=== PATIENT | male | born 1950 | race Caucasian/White ===

== ENCOUNTER 2019-01-09 07:11 | Day surgery (SDC) | payer BC, MEDICARE ==
[2019-01-05 15:42] VITALS: BP 163/79
[2019-01-05 15:55] LABS: BASOPHILS % (AUTO) 1.2 % (0.0-5.0); EOSINOPHILS % (AUTO) 3.4 % (0.0-8.0); HEMATOCRIT 47.5 % (42-54); LYMPHOCYTES % (AUTO) 17.8 % (21.0-51.0); MEAN CORPUSCULAR HEMOGLOBIN 29.3 pg (27.0-33.0); MEAN CORPUSCULAR HGB CONC 33.9 g/dL (32.0-36.0); MEAN CORPUSCULAR VOLUME 86.5 fL (79-99); MONOCYTES % (AUTO) 10.7 % (3.0-13.0); NEUTROPHILS % (AUTO) 66.9 % (40.0-77.0); PLATELET COUNT (AUTO) 319 K/uL (130-400); RED BLOOD CELL COUNT(AUTO) 5.49 MIL/uL (4.50-6.20); RED CELL DISTRIBUTION WIDTH 14.8 % (11.0-15.5); WHITE BLOOD COUNT (AUTO) 11.1 K/uL (4.8-10.8)
[2019-01-05 16:06] LABS: POTASSIUM 4.1 mmol/L (3.5-5.1)
--- NOTE | 2019-01-08 11:44 | NUR ---
[facility] INFORMED AND FAXED ABNORMAL WBC TO DR. DANIELLE SMALLS. SHE WILL INFORM DR. SANTOS.
--- NOTE | 2019-01-08 14:00 | NUR ---
ABNORMAL WBC NO FURTHER ORDERS FROM DR. SANTOS, MAY PROCEED WITH PLANNED PROCEDURE.
--- NOTE | 2019-01-08 16:06 | NUR ---
SERINA FROM DO[facility]ICE CALLED IN REGARDS TO ABNOMAL WBC, NO NEW ORDERS, LABS REPORTED TO .
[~2019-01-09] VITALS: Ht 188 cm; Wt 100.7 kg
[2019-01-09] VITALS (15 sets, daily range): BP systolic 124–163; BP diastolic 71–92
[~2019-01-09 07:11] MED LIST: AMIT10TA6 PO; CEFAZOLIN 3GM /D5W 100ML 100 ML IV SCH; FINA5TAB41 PO; FLUT16H NS; IPRA42SP NS; IRBE300T19 PO; METF-444 PO; METO-408 PO; NIFE20CA PO; OMEP10SU2 PO; [UNRECOGNIZED DRUG - OTHER] TP
[2019-01-09] MEDS: LACTATED RINGERS 1000ML 1,000 ML IV SCH ×2 (09:15→09:55)
[2019-01-09] MEDS: CEFAZOLIN SODIUM 1 GM VIAL ONE ×2 (09:17→10:00)
[2019-01-09] MEDS ORDERED: LIDOCAINE PF 2% 5ML ABBOJECT ONE (09:27)
[2019-01-09] MEDS ORDERED: FENTANYL CITRATE PF 50 MCG/1 ML 2ML VIAL ONE (09:27)
[2019-01-09] MEDS ORDERED: DEXAMETHASONE SOD PHOSPHATE 10MG/ML 1ML VIAL ONE (09:27)
[2019-01-09] MEDS ORDERED: MIDAZOLAM HCL 1 MG/ML 2ML VIAL ONE (09:27)
[2019-01-09] MEDS ORDERED: PROPOFOL 10 MG/ML 20ML VIAL IV ONE (09:27)
[2019-01-09] MEDS ORDERED: ONDANSETRON HCL 4 MG/2 ML VIAL ONE (09:27)
[2019-01-09] MEDS ORDERED: ROCURONIUM 10MG/1ML SYR 10 MG/ML ML ONE (10:04)
[2019-01-09] MEDS ORDERED: BUPIVACAINE/PF 0.25% 30ML VIAL IJ ONE (10:20)
[2019-01-09] MEDS ORDERED: NEOSTIGMINE 5MG/5ML SYR IV ONE (10:34)
[2019-01-09] MEDS ORDERED: GLYCOPYRROLATE 1 MG/5 ML SYRINGE ONE (10:34)
--- NOTE | 2019-01-09 11:43 | NUR ---
RECEIVE PT RECEIVED FROM PACU VIA STRETCHER AWAKE ALERT ORIENTED X3. PT STABLE, STATES HE JUST HAVE SOME SORENESS TO INCISION SITE BUT DOING OKAY. ABDOMEN SOFT, DRESSING TO MID ABDOMEN DRY AND INTACT, NO OOZING NO BLEEDING NOTED. CALL KENNEDY WITHIN REACH WILL CONTINUE TO MONITOR PT. CALLED FRIEND TO COME FOR RIDE AND INSTRUCTIONS. PT STATED OKAY TO GIVE INSTRUCTIONS TO FRIEND.
--- NOTE | 2019-01-09 12:30 | NUR ---
DISCHARGE PT DISCHARGED VIA WHEELCHAIR WITH FRIEND ROSS. PT STABLE. ABDOMEN REMAINS SOFT, DRESSING DRY AND INTACT, NO OOZING OR BLEEDING NOTED. PT STATES HE JUST HAVE SOME SORENESS TO INCISION SITE. DISCHARGE INSTRUCTIONS GIVEN TO FRIEND AND PT, VERBALIZED UNDERSTANDING. PT TOLERATED ORAL FLUIDS, VOIDED X2.
== END 2019-01-09 12:30 | disposition home or self-care (01) ==
LOC: DAH 07:11
PROVIDERS: ATTEND Surgery
DX: K42.9 Umbilical hernia without obstruction or gangrene (principal); E11.9 Type 2 diabetes mellitus without complications; I10 Essential (primary) hypertension; K21.9 Gastro-esophageal reflux disease without esophagitis; Z90.49 Acquired absence of other specified parts of digestive tract; Z98.890 Other specified postprocedural states; Z79.84 Long term (current) use of oral hypoglycemic drugs; Z79.899 Other long term (current) drug therapy; Z87.891 Personal history of nicotine dependence; Z72.89 Other problems related to lifestyle; Z87.442 Personal history of urinary calculi; Z82.49 Family history of ischemic heart disease and other diseases of the circulatory system
CPT/HCPCS: 36415; 49585; 80048; 82948 ×2; 85025; 93005; A4450; A4452; A4606; A4930; C1781; J0690; J1100; J2001; J2250; J2405; J2704; J2710; J3010; J3490 ×2; J7120 ×2

== ENCOUNTER 2024-02-01 05:47 | Day surgery (SDC) | payer MEDICARE ==
[2024-01-30 14:58] LABS: CREATININE 1.1 mg/dL (0.5-1.3); POTASSIUM 4.1 mmol/L (3.5-5.1)
[2024-01-30 14:59] LABS: INR 0.95 (0.85-1.15); PROTHROMBIN TIME 10.3 SEC (9.6-11.6)
[2024-01-30 15:00] LABS: PARTIAL THROMBOPLASTIN TIME 27.3 SEC (26.3-35.5)
[2024-01-30 15:04] LABS: B-TYPE NATRIURETIC PEPTIDE 15 pg/mL (0-100)
[2024-01-30 15:14] LABS: BASOPHILS # (AUTO) 0.13 K/uL (0.00-0.20); EOSINOPHILS # (AUTO) 0.78 K/uL (0.00-0.70); EOSINOPHILS % (AUTO) 6.1 % (0.0-8.0); HEMATOCRIT 44.8 % (42-54); IMMATURE GRANULOCYTE ABSOLUTE 0.05 K/uL (0-1); MEAN CORPUSCULAR HEMOGLOBIN 28.6 pg (27.0-33.0); MEAN CORPUSCULAR HGB CONC 33.5 g/dL (32.0-36.0); MEAN CORPUSCULAR VOLUME 85.5 fL (79-99); MONOCYTES % (AUTO) 7.7 % (3.0-13.0); NEUTROPHILS # (AUTO) 8.8 K/uL (1.8-7.7); NEUTROPHILS % (AUTO) 68.8 % (40.0-77.0); PLATELET COUNT (AUTO) 365 K/uL (130-400); RED BLOOD CELL COUNT(AUTO) 5.24 MIL/uL (4.50-6.20); RED CELL DISTRIBUTION WIDTH 13.6 % (11.0-15.5); WHITE BLOOD COUNT (AUTO) 12.8 K/uL (4.8-10.8)
[2024-01-30 15:59] VITALS: BP 158/76; PULSE 71; RESP 18
[2024-02-01] VITALS (11 sets, daily range): BP systolic 133–177; BP diastolic 73–85; PULSE 61–82; RESP 16–18
[~2024-02-01] VITALS: Ht 185.4 cm; Wt 103.3 kg
[~2024-02-01 05:47] MED LIST changes: +AEC81 PO; -AMIT10TA6 PO; +ATOR40TA69 PO; -CEFAZOLIN 3GM /D5W 100ML 100 ML IV SCH; +CLOP-31 PO; -FLUT16H NS; +GLIM2TAB30 PO; -IPRA42SP NS; -IRBE300T19 PO; +ISOS60TA77 PO; +LISI1TAB51 PO; +METO-391 PO; -METO-408 PO; -NIFE20CA PO; +NIFE90TA65 PO; +NITR0.4T50 SL; -OMEP10SU2 PO; -[UNRECOGNIZED DRUG - OTHER] TP
[2024-02-01 06:10] LABS: BASOPHILS # (AUTO) 0.12 K/uL (0.00-0.20); BASOPHILS % (AUTO) 0.9 % (0.0-5.0); EOSINOPHILS # (AUTO) 0.93 K/uL (0.00-0.70); EOSINOPHILS % (AUTO) 7.3 % (0.0-8.0); IMMATURE GRANULOCYTE ABSOLUTE 0.04 K/uL (0-1); LYMPHOCYTES # (AUTO) 2.7 K/uL (1.0-4.8); LYMPHOCYTES % (AUTO) 21.6 % (21.0-51.0); MEAN CORPUSCULAR HEMOGLOBIN 28.6 pg (27.0-33.0); MEAN CORPUSCULAR VOLUME 84.1 fL (79-99); MONOCYTES # (AUTO) 1.2 K/uL (0.1-1.0); MONOCYTES % (AUTO) 9.4 % (3.0-13.0); NEUTROPHILS # (AUTO) 7.7 K/uL (1.8-7.7); NEUTROPHILS % (AUTO) 60.5 % (40.0-77.0); PLATELET COUNT (AUTO) 371 K/uL (130-400); RED BLOOD CELL COUNT(AUTO) 5.35 MIL/uL (4.50-6.20); RED CELL DISTRIBUTION WIDTH 13.7 % (11.0-15.5); WHITE BLOOD COUNT (AUTO) 12.7 K/uL (4.8-10.8)
[2024-02-01 06:15] LABS: APPEARANCE,URINE CLEAR (CLEAR); BILIRUBIN,URINE NEGATIVE (NEGATIVE); COLOR,URINE LIGHT-YELLOW (YELLOW); GLUCOSE, URINE (UA) NEGATIVE (NEGATIVE); KETONES,URINE NEGATIVE (NEGATIVE); LEUKOCYTE ESTERASE ,URINE NEGATIVE Leu/uL (NEGATIVE); NITRATE,URINE NEGATIVE (NEGATIVE); OCCULT BLOOD,URINE NEGATIVE (NEGATIVE); PROTEIN,URINE 20 mg/dL (NEGATIVE); RBC,URINE 0-1 /HPF (0-1); UROBILINOGEN,URINE 0.2 mg/dL (0.2-1.0); WBC,URINE 0-1 /HPF (0-1)
[2024-02-01] MEDS: 0.9%NACL 1000ML 1,000 ML IV ONE (06:48)
[2024-02-01] MEDS ORDERED: LIDOCAINE HCL 400MG/20ML VIAL ONE (07:19)
[2024-02-01] MEDS ORDERED: VERAPAMIL HCL 2.5 MG/ML VIAL ONE (07:20)
[2024-02-01] MEDS ORDERED: IOHEXOL 350 MG/ML 100ML INFUS..BTL IV ONE ×2 (07:20→07:34)
[2024-02-01] MEDS ORDERED: NITROGLYCERIN 50MG VIAL ONE (07:20)
[2024-02-01] MEDS ORDERED: FENTANYL CITRATE PF 50 MCG/1 ML 2ML VIAL ONE (07:35)
[2024-02-01] MEDS ORDERED: MIDAZOLAM HCL 1 MG/ML 2ML VIAL ONE (07:35)
[2024-02-01] MEDS ORDERED: HEPARIN 10,000 UNIT/10ML (1,000 UNIT/ML) VIAL ONE (07:39)
[2024-02-01] MEDS ORDERED: CLOPIDOGREL 300MG TAB ONE (08:48)
[2024-02-01] MEDS ORDERED: DEXTROSE 50%-WATER 50 ML DISP.SYRIN IV PRN (09:00)
[2024-02-01] MEDS: 0.9%NACL 1000ML 1,000 ML IV SCH (09:46)
[2024-02-01] MEDS ORDERED: INSULIN HUMULIN R 100 UNIT/ML 3ML ONE (09:50)
[2024-02-01] MEDS: INSULIN HUMULIN R 100 UNIT/ML 3ML SQ SCH (09:58)
== END 2024-02-01 13:43 | disposition home or self-care (01) ==
LOC: DAH 05:47
PROVIDERS: ATTEND Internal Medicine Interventional Cardiology
DX: R07.9 Chest pain, unspecified (principal); I25.118 Atherosclerotic heart disease of native coronary artery with other forms of angina pectoris; I10 Essential (primary) hypertension; E78.2 Mixed hyperlipidemia; E11.43 Type 2 diabetes mellitus with diabetic autonomic (poly)neuropathy; E11.59 Type 2 diabetes mellitus with other circulatory complications; Z79.82 Long term (current) use of aspirin; Z79.01 Long term (current) use of anticoagulants; Z79.899 Other long term (current) drug therapy
CPT/HCPCS: 80048; 83880; 85025 ×2; 85610; 85730; 36415 ×2; 71045; 93005; 82948 ×2; 81001; 93458; C9600; J1815; C1887 ×3; C1769 ×2; C1725; C1874; C1894; A4649; J3010; J3490 ×3; J7030; J1644 ×2; J2250; Q9967 ×2; A4215; A4222; A4221; A4663; A4216; A4606; Q9965; A4223 ×3; 99156; 99157